=== PATIENT | female | born 1955 | race Caucasian/White ===

== ENCOUNTER 2019-01-22 20:23 | Emergency (ER) | payer OTHER ==
[2019-01-22] MEDS: AMOXICILLIN/CLAV 875 MG TAB PO (23:36)
[2019-01-22] MEDS: traMADol 50 MG TAB PO (23:36)
[2019-01-22] MEDS: BACITRACIN 0.9 GM OINT TOP (23:36)
== END 2019-01-22 23:40 | disposition home or self-care (01) ==
LOC: FTE 23:40
DX: S61.210A Laceration without foreign body of right index finger without damage to nail, initial encounter (principal); W53.11XA Bitten by rat, initial encounter; Y92.9 Unspecified place or not applicable
CPT/HCPCS: 99283; Z7502